=== PATIENT | male | born 2000 | race Caucasian/White ===

== ENCOUNTER 2021-04-06 04:04 | Emergency (ER) | payer OTHER ==
[2021-04-06] MEDS ORDERED: Lidocaine 1% (PF) 30 ML VIAL ONE (04:21)
[2021-04-06] MEDS ORDERED: Boostrix 0.5 ML (Tdap) VIAL ONE (04:21)
== END 2021-04-06 06:50 | disposition still patient (30) ==
LOC: NAV ERS 04:04
DX: S51.811A Laceration without foreign body of right forearm, initial encounter (principal); R45.851 Suicidal ideations; K21.9 Gastro-esophageal reflux disease without esophagitis; Z23 Encounter for immunization; Z79.899 Other long term (current) drug therapy; W26.8XXA Contact with other sharp object(s), not elsewhere classified, initial encounter
CPT/HCPCS: 12004; 90471; 90715; J2001